=== PATIENT | female | born 1950 | race Caucasian/White ===

== ENCOUNTER → 2017-08-04 | Outpatient (CLI) | payer BC ==
[~2017-08-04] MED LIST: ASCO500C43 PO; BCTCR/30 EXT; CALC-5 PO; CHOL1000 PO; COEN30CA8 PO; MULT-513 PO; OMEG10007 PO
[2017-08-04 17:29] LABS: HEMATOCRIT 37.8 % (37-47); HEMOGLOBIN 12.2 g/dL (12.0-16.0); MEAN CELL VOLUME 92.2 fL (80-100); MEAN CORPUSCULAR HEMOGLOBIN 29.8 pg (25-34); MEAN CORPUSCULAR HGB CONC 32.3 g/dl (32-36); MEAN PLATELET VOLUME 10.3 fL (7.4-10.4); PLATELET COUNT 379 K/uL (130-400); RED CELL DISTRIBUTION WIDTH CV 13.7 % (11.5-14.5); RED CELL DISTRIBUTION WIDTH SD 46.3 fL (36.4-46.3); WHITE BLOOD COUNT 10.84 K/uL (4.8-10.8)
[2017-08-04 17:38] LABS: INR 0.9 (0.9-1.1); PTT PATIENT 25.2 SECONDS (21.0-31.0)
[2017-08-04 18:06] LABS: BLOOD UREA NITROGEN 22 mg/dl (7-18); CREATININE 0.83 mg/dl (0.60-1.20); GLUCOSE 92 mg/dl (70-99)
[2017-08-04 18:07] LABS: ALBUMIN 3.7 gm/dl (3.4-5.0); ALT/SGPT 20 U/L (12-78); AST/SGOT 20 U/L (15-37); CALCIUM 9.6 mg/dl (8.5-10.1); CARBON DIOXIDE 28 mmol/L (21-32); POTASSIUM 3.9 mmol/L (3.5-5.1); SODIUM 139 mmol/L (136-145)
[2017-08-04 18:09] LABS: ALKALINE PHOSPHATASE 101 U/L (45-117); TOTAL PROTEIN 7.9 gm/dl (6.4-8.2)
== END | disposition home or self-care (01) ==
LOC: C.LAB1850 16:47
PROVIDERS: ATTEND Internal Medicine
DX: K62.5 Hemorrhage of anus and rectum (principal)

== ENCOUNTER → 2017-08-31 | Day surgery (SDC) | payer BC ==
[2017-08-25 13:10] VITALS: Ht 151.1 cm; Wt 59.1 kg
[~2017-08-31] VITALS: Ht 151.1 cm; Wt 59.1 kg
[~2017-08-31] MED LIST changes: +LIDOCAINE HCL 2% 2 ML VIAL (20MG/ML) ONE; +PROPOFOL IV EMULSION 10 MG/ML 20 ML VIAL ONE; +SODIUM CHLORIDE 0.9% 500ML 500 ML IV ONE
--- NOTE | 2017-08-31 09:52 | Endo History and Physical ---
History & Physical Date of Service: Aug 31, 2017. Chief Complaint: rectal bleeding Referring Physician: Dr. Fran Allen History of Present Illness 67 yo CF who presents for colonoscopy secondary to rectal bleeding. Past Surgical History Hx Cardiac Surgery: Yes (QUADRUPLE BYPASS 01/02/2017-[facility]) Hx Internal Defibrillator: No Hx Pacemaker: No Hx Abdominal Surgery: Yes (TUBAL) Hx of Implantable Prosthesis: No Hx Post-Op Nausea and Vomiting: No Hx Cancer Surgery: No Hx Thoracic Surgery: No Hx Orthopedic: No Hx Urinary Tract Surgery: No Family History Polyp Social History Smoking Status: Never Smoker Hx Substance Use: No Hx Alcohol Use: No Allergies Coded Allergies: Penicillins (Verified Allergy, Severe, SHORTNESS OF BREATH, 08/25/17) SOB Ranitidine (Verified Allergy, Intermediate, HIVES, SWELLING, 08/25/17) Sulfa Antibiotics (Verified Allergy, Intermediate, HIVES, SWELLING, ) Cefaclor (Verified Allergy, Mild, RASH, 08/25/17) Adhesives (Verified Allergy, Unknown, ADHESIVE TAPE, 08/25/17) Oxycodone (Unverified Adverse Reaction, Intermediate, sweating, 08/31/17) Current Medications Reported Home Medications Medications Dose Route/Sig Max Daily Dose Days Date Category Vitamin D3 (Cholecalciferol) Unknown Strength Tab 1 Tab PO DAILY 90 12/31/16 Reported Vitamin C 500 mg (Ascorbic Acid) 1 Chw Chw 1 Tab PO DAILY 12/31/16 Reported Bactroban 2% (Mupirocin) 30 Gm Cr 1 Appln EXT UD 12/31/16 Reported [place]-3 (Fish Oil) 1 Ea Cap 1 Cap PO DAILY 12/31/16 Reported Mvi With Minerals (Multivitamins/Minerals) Tab 1 Tab PO DAILY 12/31/16 Reported Coq-10 (Coenzyme Q10 (Ubidecarenone)) Unknown Strength Cap 1 Tab PO DAILY 12/31/16 Reported Calcium 500 (Calcium-Magnesium W/ Vitamin D) 1 Tab Tab 1 Tab PO DAILY 12/31/16 Reported Vital Signs Weight (Kilograms): 59.09 Height (Feet): 4 Height (Inches): 11.5 Date Time Temp Pulse Resp B/P (MAP) Pulse Ox O2 Delivery O2 Flow Rate FiO2 08/31/17 09:07 36.5 82 20 156/94 (114) 99 Room Air Physical Exam General Appearance: WD/WN, no apparent distress Respiratory/Chest: Auscultation: breath sounds normal Cardiovascular: Heart Auscultation: RRR Abdomen: Bowel Sounds: normal Inspection & Palpation: soft, non-distended, no tenderness, guarding & rebound Assessment and Plan Assessment: 67 yo CF who presents for colonoscopy secondary to rectal bleeding. Plan: Proceed with colonoscopy.
--- NOTE | 2017-08-31 10:18 | GI REPORT ---
Patient Name: Princess Tay Procedure Date: 08/31/2017 9:58 AM Date of : 1950 Admit Type: Outpatient Age: 67 Gender: Female Attending MD: Maverick Rushing DO Procedure: Colonoscopy Providers: Maverick Rushing DO Referring MD: Fran Allen Indications: Rectal bleeding Medicines: Monitored Anesthesia Care Complications: No immediate complications. Estimated Blood Loss: Estimated blood loss: none. Procedure: Pre-Anesthesia Assessment: - Prior to the procedure, a History and Physical was performed, and patient medications and allergies were reviewed. The patient's tolerance of previous anesthesia was also reviewed. The risks and benefits of the procedure and the sedation options and risks were discussed with the patient. All questions were answered, and informed consent was obtained. Prior Anticoagulants: The patient has taken no previous anticoagulant or antiplatelet agents. ASA Grade Assessment: III - A patient with severe systemic disease. After reviewing the risks and benefits, the patient was deemed in satisfactory condition to undergo the procedure. After I obtained informed consent, the scope was passed under direct vision. Throughout the procedure, the patient's blood pressure, pulse, and oxygen saturations were monitored continuously. The scope was introduced through the anus and advanced to the terminal ileum. The colonoscopy was performed without difficulty. The patient tolerated the procedure well. The quality of the bowel preparation was good. The terminal ileum, ileocecal valve, appendiceal orifice, and rectum were photographed. Findings: The perianal and digital rectal examinations were normal. Multiple small-mouthed diverticula were found in the sigmoid colon. Non-bleeding internal hemorrhoids were found during retroflexion. The hemorrhoids were small. Impression: - Diverticulosis in the sigmoid colon. - Non-bleeding internal hemorrhoids. - No specimens collected. Recommendation: - Resume previous diet. - Continue present medications. - Repeat colonoscopy in 10 years for surveillance. - Return to primary care physician as previously scheduled. Maverick Rushing DO 08/31/2017 10:18:06 AM This report has been signed electronically. Note Initiated On: 08/31/2017 9:58 AM Number of Addenda: 0 I attest to the content of the Intraoperative Record and orders documented therein, exceptions below {[id number]}
--- NOTE | 2017-08-31 10:19 | Discharge Instructions ---
Endoscopy Patient Instructions Date / Procedure(s) Performed Aug 31, 2017. Colonoscopy Allergy Information Coded Allergies: Penicillins (Verified Allergy, Severe, SHORTNESS OF BREATH, 08/25/17) SOB Ranitidine (Verified Allergy, Intermediate, HIVES, SWELLING, 08/25/17) Sulfa Antibiotics (Verified Allergy, Intermediate, HIVES, SWELLING, ) Cefaclor (Verified Allergy, Mild, RASH, 08/25/17) Adhesives (Verified Allergy, Unknown, ADHESIVE TAPE, 08/25/17) Oxycodone (Unverified Adverse Reaction, Intermediate, sweating, 08/31/17) Discharge Date / Findings Aug 31, 2017. Diverticulosis Internal hemorrhoids Medication Instructions OK to resume all medications today as prescribed Reported Home Medications Medications Dose Route/Sig Max Daily Dose Days Date Category Vitamin D3 (Cholecalciferol) Unknown Strength Tab 1 Tab PO DAILY 90 12/31/16 Reported Vitamin C 500 mg (Ascorbic Acid) 1 Chw Chw 1 Tab PO DAILY 12/31/16 Reported Bactroban 2% (Mupirocin) 30 Gm Cr 1 Appln EXT UD 12/31/16 Reported [place]-3 (Fish Oil) 1 Ea Cap 1 Cap PO DAILY 12/31/16 Reported Mvi With Minerals (Multivitamins/Minerals) Tab 1 Tab PO DAILY 12/31/16 Reported Coq-10 (Coenzyme Q10 (Ubidecarenone)) Unknown Strength Cap 1 Tab PO DAILY 12/31/16 Reported Calcium 500 (Calcium-Magnesium W/ Vitamin D) 1 Tab Tab 1 Tab PO DAILY 12/31/16 Reported Provider Instructions Activity Restrictions - No exercising or heavy lifting for 24 hours. - Do not drink alcohol the day of the procedure. - Do not drive a car or operate machinery until the day after the procedure. - Do not make any important decisions or sign important papers in 24 hours after the procedure. Following Day: - Return to full activity which may include returning to work/school. Diet Start your diet with liquids and light foods (jello, soup, juice, toast). Then eat your usual diet if not nauseated. Treatment For Common After Affects For mild abdominal pain, bloating, or excessive gas: - Rest - Eat lightly - Lie on right side Follow-Up Information Follow-up with Dr. Fran Allne as scheduled Anesthesia Information What You Should Know You have had a procedure that required some medicine to reduce anxiety and discomfort. This treatment is called moderate sedation. After receiving the treatment, you may be sleepy, but you will be able to breathe on your own. The effects of the treatment may last for several hours. Follow these instructions along with Activity/Diet recommendations noted above: * Do NOT do anything where dizziness or clumsiness would be dangerous. * Rest quietly at home today, then you can be up and about tomorrow. * Have a responsible person stay with you the rest of today. * You may have had an I.V. today. If so, you may take the dressing off later today. Recommendations Call your doctor if: * Trouble breathing * Continuous vomiting for more than 24 hours * Temperature above 101 degrees * Severe abdominal pain or bloating * Pain not relieved by pain medicine ordered * There is increased drainage or redness from any incision * A large amount of rectal bleeding greater than 2-3 tablespoons. (If you had a polyp/s removed or have hemorrhoids, a small amount of blood - from the rectum is to be expected.) * You have any unanswered questions or concerns. IN THE EVENT OF A SERIOUS EMERGENCY, GO TO THE NEAREST EMERGENCY ROOM Your discharge instructions were prepared by provider Maverick Rushing. Patient Instructions Signature Page Princess Tay Patient (or Guardian) Signature/Date: I have read and understand the instructions given to me by my caregivers. Caregiver/RN/Doctor Signature/Date: The above-named patient and/or guardian has received patient instructions on this date. + Original Patient Signature Page (only) stays with chart. Please make copy for patient.
--- NOTE | 2017-08-31 10:30 | Anesthesiology Progress Note ---
Anesthesia Post Op Note Date & Time Aug 31, 2017 at 10:30 Vital Signs Pain Intensity: 3 Vital Signs Past 12 Hours Date Time Temp Pulse Resp B/P (MAP) Pulse Ox O2 Delivery O2 Flow Rate FiO2 08/31/17 10:20 77 20 115/56 (75) 99 Room Air 08/31/17 09:07 36.5 82 20 156/94 (114) 99 Room Air Notes Mental Status: alert / awake / arousable, participated in evaluation Pt Amnestic to Procedure: Yes Nausea / Vomiting: adequately controlled Pain: adequately controlled Airway Patency, RR, SpO2: stable & adequate BP & HR: stable & adequate Hydration State: stable & adequate Anesthetic Complications: no major complications apparent
[2017-08-31 10:35] VITALS: BP 140/56; PULSE 67; O2SAT 96
== END | disposition home or self-care (01) ==
LOC: C.GI 08:39
PROVIDERS: ATTEND Internal Medicine
DX: K62.5 Hemorrhage of anus and rectum (principal); G47.33 Obstructive sleep apnea (adult) (pediatric); K64.8 Other hemorrhoids; K57.30 Diverticulosis of large intestine without perforation or abscess without bleeding; I25.10 Atherosclerotic heart disease of native coronary artery without angina pectoris; Z95.1 Presence of aortocoronary bypass graft; Z80.0 Family history of malignant neoplasm of digestive organs; Z88.2 Allergy status to sulfonamides; Z88.8 Allergy status to other drugs, medicaments and biological substances; Z88.5 Allergy status to narcotic agent; I25.2 Old myocardial infarction